=== PATIENT | male | born 1980 | race Caucasian/White ===

== ENCOUNTER 2024-02-27 16:45 | Emergency (ER) | payer OTHER, SELFPAY ==
[2024-02-27] VITALS (11 sets, daily range): BP systolic 137–146; BP diastolic 103–107; PULSE 79–93; RESP 16; TEMP 36.5; O2SAT 96–100; BMI 28.2
--- NOTE | 2024-02-27 17:05 | ED.GENADULT ---
HPI - General Adult General Date Seen: 02/27/24 Chief complaint: Neck Injury/Pain Stated complaint: neck pain Time Seen by Provider: 02/27/24 17:01 History of Present Illness HPI narrative: 43-year-old male presents to the ER today with a 3 day history of neck pain. He is having pain in the right posterior neck, at the base of the skull. He 1st noticed it 3 days ago, on Tuesday when he woke up and says that he thinks he may have slept wrong. The pain has been getting steadily worse since then. Pain increases with turning his neck, and with swallowing. He seemed Marcello sweaty last night but denies any other fever. No nausea or vomiting. He has no recent trauma. No injury. No recent chiropractic manipulation. The pain is mostly in the right posterior neck and radiates down to the right lateral neck but not really into the shoulder and not down the arm. He does not really have an associated headache. Some occasional episodes of dizziness but no vertigo. No blurry vision. No tinnitus. No trouble with his hearing. He does refer call that 14 years ago he had a history of an infected or abscessed lymph noted his neck. It sounds like he initially thought at that occasion that he had ?slept wrong? and then ultimately wound up being admitted for course of IV antibiotics at [facility]. He was sent home to finish antibiotics with a PICC line. He does not recall the details about that infection, whether was a lymph node or an abscess or something deeper. He does not recall the name of the infection or the name of the antibiotic he was treated with. Records are not available to us today. Related Data Home Medications ?Medication ?Instructions ?Recorded ?Confirmed No Known Home Medications 02/27/24 02/27/24 Allergies Allergy/AdvReac Type Severity Reaction Status Date / Time No Known Drug Allergies Allergy Verified 02/27/24 17:42 PFSH PFS Social History Smoking Status: Never smoker How often do you have a drink containing alcohol: 2-3 times a week AUDIT-C Alcohol total score: 3 Non-prescribed substance use: denies use Exam Narrative: Exam Narrative: Constitutional: Appears well-developed and well-nourished. Alert. Conversant. Non toxic. HENT: Head: Atraumatic. Nose: Nose normal. Mouth/Throat: Oral mucosa is clear and moist. no trismus. Pharynx normal. Tonsils symmetric. No tonsillar enlargement, . Perhaps subtle erythema but may just be a normal variant. No exudates. Uvula midline. Phonation normal Eyes: Conjunctivae normal. EOM normal. Pupils equal, round, and reactive to light. No scleral icterus. Neck: Range of motion is limited by posterolateral neck pain. He is able to rotate to the left about 30 or 45?. He has pain with rotation to the right anything beyond midline. He also endorses pain with flexion and extension of the neck but does not have ?stiffness or ?meningismus. ? Evaluation of the posterior neck is normal. Skin is pink but suntanned. No erythema or warmth. I do not appreciate any rash or shingles. There is no palpable mass, lymphadenopathy, or fluctuance. No crepitus of the soft tissue. Right ear: Pinna, mastoid, TM are normal. Canal normal. Left ear: Pinna, mastoid, TM, canal are normal. Cardiovascular: Normal rate, regular rhythm. No gallop. No friction rub. No murmur heard. Symmetric radial artery pulses Pulmonary/Chest: Effort normal. No stridor. No respiratory distress. No wheezes. No rales. No rhonchi . Musculoskeletal: RUE: Normal range of motion. No tenderness. No deformity LUE: Normal range of motion. No tenderness. No deformity RLE: Normal range of motion. No edema. No tenderness. No deformity LLE: Normal range of motion. No edema. No tenderness. No deformity Lymph: No occipital, anterior or posterior cervical, submental, supraclavicular adenopathy. Neurological: Alert and oriented to person, place, and time. Normal strength. CN II-VII intact. No sensory deficit. GCS eye subscore is 4. GCS verbal subscore is 5. GCS motor subscore is 6. Normal coordination Skin: Skin is warm and dry. No rash noted. No pallor. Normal capillary refill. Psychiatric: Normal mood. Normal affect. Const: Vital Signs, click to edit/add: Vital Signs - 24 hr 02/27/24 16:58 02/27/24 17:56 02/27/24 18:00 Temperature 97.7 F Pulse Rate 88 90 Pulse Rate [Pulse Oximeter] 93 Respiratory Rate 16 Blood Pressure Blood Pressure [Ri ght Upper Arm] 137/105 H Pulse Oximetry 100 98 99 Oxygen Delivery Me thod Room Air 02/27/24 18:15 02/27/24 18:30 02/27/24 18:45 Temperature Pulse Rate 90 86 88 Pulse Rate [Pulse Oximeter] Respiratory Rate Blood Pressure Blood Pressure [Ri ght Upper Arm] Pulse Oximetry 98 97 98 Oxygen Delivery Me thod 02/27/24 19:00 02/27/24 20:20 02/27/24 20:21 Temperature Pulse Rate 87 80 84 Pulse Rate [Pulse Oximeter] Respiratory Rate Blood Pressure 138/103 H Blood Pressure [Ri ght Upper Arm] Pulse Oximetry 99 96 98 Oxygen Delivery Me thod 02/27/24 22:08 02/27/24 22:09 Temperature Pulse Rate 79 Pulse Rate [Pulse Oximeter] Respiratory Rate Blood Pressure 146/107 H Blood Pressure [Ri ght Upper Arm] Pulse Oximetry 97 Oxygen Delivery Me thod Course Vital Signs Vital signs: Initial Vital Signs Temperature 97.7 F 02/27/24 16:58 Temperature Source Temporal Artery Scan 02/27/24 16:58 Pulse Rate 93 02/27/24 16:58 Respiratory Rate 16 02/27/24 16:58 Blood Pressure 137/105 H 02/27/24 16:58 Blood Pressure Mean 115 H 02/27/24 16:58 Blood Pressure Position High-Fowlers 02/27/24 16:58 Pulse Oximetry 100 02/27/24 16:58 Oxygen Delivery Method Room Air 02/27/24 16:58 Vital Signs Temperature 97.7 F 02/27/24 16:58 Pulse Rate 93 02/27/24 16:58 Respiratory Rate 16 02/27/24 16:58 Blood Pressure 137/105 H 02/27/24 16:58 Pulse Oximetry 100 02/27/24 16:58 Oxygen Delivery Method Room Air 02/27/24 16:58 Temperature 97.7 F 02/27/24 16:58 Pulse Rate 79 02/27/24 22:08 Respiratory Rate 16 02/27/24 16:58 Blood Pressure 146/107 H 02/27/24 22:09 Pulse Oximetry 97 02/27/24 22:08 Oxygen Delivery Method Room Air 02/27/24 16:58 Medications Administered Medications: Discontinued Medications Generic Name Dose Route Start Last Admin Trade Name Freq PRN Reason Stop Dose Admin Cyclobenzaprine HCl 10 mg 02/27/24 17:28 02/27/24 17:50 Cyclobenzaprine Hcl 10 Mg Tablet PO 02/27/24 17:29 10 mg ONCE ONE Administration Dexamethasone 10 mg 02/27/24 18:53 02/27/24 19:44 Dexamethasone 4 Mg/Ml Vial IV 02/27/24 18:54 10 mg ONCE ONE Administration Piperacillin Sod/Tazobactam 100 mls @ 200 mls/hr 02/27/24 18:53 02/27/24 20:22 Sod 4.5 gm/ Sodium Chloride IVPB 02/27/24 18:54 Infused ONCE ONE Infusion Lactated Ringer's 1,000 mls @ 125 mls/hr 02/27/24 20:55 02/27/24 21:00 Lactated Ringers 1000 Ml IV 125 mls/hr .Q8H BHARAT Administration Ibuprofen 600 mg 02/27/24 17:28 02/27/24 17:51 Ibuprofen 600 Mg Tablet PO 02/27/24 17:29 600 mg ONCE ONE Administration Medical Decision Making [facility] Narrative Medical decision making narrative: This is a very pleasant 43-year-old male presenting to the ER today with a 3 day history of atraumatic neck pain. He is reporting primarily having pain in the right posterior lateral neck from the base of the occiput down word. No radicular pain or numbness or weakness down his arm. No history of trauma or injury or axial load to raise risk for C-spine injury. Interestingly he also reports fairly significant of odynophagia. No recent pharyngitis or cough or fever. No other known injury to his pharynx. Laboratory workup is fairly reassuring with normal white count and minimally abnormal CRP. Procalcitonin is fairly normal. However with significant an aphasia and history of previous deep space neck infection (details limited but apparently was hospitalized at [facility] 14 years ago) we did obtain advanced imaging with CT scan. See CT scan does demonstrate a retropharyngeal fluid collection measuring 9 mm x 75 mm. Discussed with radiology and they confirmed that it is in the midline by in the esophagus. Incidentally when I reviewed the CT images I was questioning some irregularity of the contrast enhancement in the right IJ vein (possibly limb air syndrome) the radiology indicates that this is a normal finding related to contrast just beginning to feel the IJ vein at the time images were taken and does not represent clot in the vein). Patient was started on IV antibiotics (Zosyn) and steroids. Discussed with our ENT surgeon, Dr. Yoo. Off Dr. Yoo would advise transfer to a larger facility given the potential for worsening infection and need for advanced surgical intervention. Discussed with the patient and his . Their primary care is [facility] now. They would be willing to transfer to [facility] In discussion with the line access center we initially discussed the case with Dr. Chavez, who is the ENT on-call for [facility]. He would definitely accept the patient there and would like the patient to come expeditiously. Unfortunately, there are no beds available at [facility] now and there may be an 8 hour bed delay. ENT feels that that amount of bili would not be appropriate. Therefore recommends that we try to get the patient admitted at [place], where beds are immediately available. Subsequently discussed with the on-call ENT surgeon for [facility]. He also agrees to evaluate the patient when he arrives at [facility], but feels that there is less urgency for transfer. Subsequently the patient was accepted by the hospitalist at [facility], Dr. Wynn. Patient was transferred by EMS. He remained hemodynamically stable and with a patent airway throughout his ER course Lab Data Labs: Lab Results 02/27/24 02/27/24 02/27/24 Range/Units 17:35 17:35 19:18 WBC 7.94 (4.50-11.00) K/uL RBC 4.63 (4.30-5.90) m/uL Hgb 14.2 (13.5-17.5) gm/dL Hct 42.2 (37.0-53.0) % MCV 91 (80-100) fL MCH 31 (26-34) pg MCHC 34 (32-36) gm/dL RDW Coeff of Sherice 12.1 (11.5-15.5) % Plt Count 171 (140-440) K/uL Neut % (Auto) 61.3 (42.0-72.0) % Lymph % (Auto) 23.6 (20-44) % [place] % (Auto) 12.2 H (0.0-11.0) % Eos % (Auto) 1.6 (0.0-7.0) % Baso % (Auto) 0.5 (0.0-3.0) % Neut # (Auto) 4.87 (1.7-7.0) K/uL Lymph # (Auto) 1.87 (0.90-2.90) K/uL [place] # (Auto) 1.00 H (0.00-0.90) K/UL Eos # (Auto) 0.13 (0.00-0.50) K/uL Baso # (Auto) 0.04 (0.00-0.30) K/uL Abs Immat Gran (auto) 0.06 (0.00-0.30) K/uL Imm/Tot Granulo (auto) 0.8 % Sodium 137 (135-149) mmol/L Potassium 4.2 (3.6-5.1) mmol/L Chloride 103 (96-114) mmol/L Carbon Dioxide 28 (20-32) mmol/L Anion Gap 6 L (7-15) mEq/L BUN 19 (5-24) mg/dL Creatinine 1.0 (0.5-1.5) mg/dL Estimated Creat Clear 113.03 Estimated GFR 97 ml/min Glucose 97 (60-115) mg/dL Calcium 9.0 (8.4-10.6) mg/dL C-Reactive Protein 2.3 H (0.5-1.0) mg/dL Procalcitonin Cancelled 0.05 Group A Strep DNA NOT DETECTED (Not Detectd) Imaging Data CTA neck: Attestation: I have reviewed the pertinent imaging results. Radiologist's impression: CTA neck: No high-grade stenosis or filling defects are identified in the cervical carotid systems or cervical vertebral arteries. No dissection identified. Numerous prominent cervical chain lymph nodes may be reactive. Thickening of the palatine tonsil tissues may represent tonsillitis. There is a retropharyngeal fluid collection which measures up to 0.9 cm in thickness at the C4 level. The fluid collection spans the C2 through C5 levels, measuring 7.5 cm craniocaudad. Discharge Plan Discharge Clinical Impression: Abscess, retropharyngeal Patient Disposition: [facility] Prescriptions: No Action No Known Home Medications Stand Alone Forms: MyHealth Info Instructions
--- NOTE | 2024-02-27 17:28 | CRLHL7_ITS ---
For Patients: As a result of the Century Cures Act, medical imaging exams and procedure reports are released immediately into your electronic medical record. You may view this report before your referring provider. If you have questions, please contact your health care provider. DATE: 02/27/2024 CLINICAL HISTORY: Patient with neck pain. TECHNIQUE: Standard helical CT image acquisition of the neck up to the skull base after bolus intravenous contrast enhancement. 2D and 3D MIP images for post-processing were performed and interpreted on an independent workstation and 3D images were permanently archived. COMPARISON: CT same day. FINDINGS: There is a retropharyngeal fluid collection measuring up to 0.9 cm in thickness, centered at the C4 level but spanning the C2 through C5 levels, measuring 7.5 cm the in the craniocaudad dimension. The origins of the great vessels from the aortic arch are patent. The origin of the right vertebral artery is patent. The origin of the left vertebral artery is patent. The common carotid arteries are patent. There is no stenosis at the origin of the right internal carotid artery. There is no stenosis at the origin of the left internal carotid artery. The rest of the cervical segments of the internal carotid arteries are patent up to the skull base. The left vertebral artery is dominant. The cervical segments of the vertebral arteries are patent up to the skull base. 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 The visualized lung apices are unremarkable. The thyroid gland is unremarkable There are degenerative changes in the cervical spine. IMPRESSION: 1. Patent cervical vasculature. 2. Retropharyngeal fluid collection measuring up to 0.9 cm in thickness, centered at the C4 level but spanning the C2 through C5 levels, measuring 7.5 cm the in the craniocaudad dimension. This may infectious or inflammatory in etiology and clinical correlation is recommended. Please note that all CT scans at this facility use dose modulation, iterative reconstruction, and/or weight-based dosing when appropriate to reduce radiation dose to as low as reasonably achievable. Dictated by Tara Ferreira MD @ 02/28/2024 10:03:54 AM (Electronically Signed)
[2024-02-27] MEDS: CYCLOBENZAPRINE HCL 10 MG TABLET PO (17:50)
[2024-02-27] MEDS: IBUPROFEN 600 MG TABLET PO (17:51)
[2024-02-27 18:01] LABS: Basophils Absolute Auto 0.04 K/uL (0.00-0.30); Basophils Percent Auto 0.5 % (0.0-3.0); Eosinophils Absolute Auto 0.13 K/uL (0.00-0.50); Eosinophils Percent Auto 1.6 % (0.0-7.0); Hematocrit 42.2 % (37.0-53.0); Hemoglobin* 14.2 gm/dL (13.5-17.5); Immature Granulocytes Abs Auto 0.06 K/uL (0.00-0.30); Immature Granulocytes Pct Auto 0.8 %; Lymphocytes Absolute Auto 1.87 K/uL (0.90-2.90); Lymphocytes Percent Auto 23.6 % (20-44); Mean Corpuscular HGB Conc 34 gm/dL (32-36); Mean Corpuscular Hemoglobin 31 pg (26-34); Mean Corpuscular Volume 91 fL (80-100); Monocytes Percent Auto 12.2 % (0.0-11.0); Neutrophils Absolute Auto 4.87 K/uL (1.7-7.0); Neutrophils Percent Auto 61.3 % (42.0-72.0); Platelet Count* 171 K/uL (140-440); RDW Coefficient of Variation % 12.1 % (11.5-15.5); Red Blood Count 4.63 m/uL (4.30-5.90); White Blood Count* 7.94 K/uL (4.50-11.00)
[2024-02-27 18:03] LABS: Slide Review Reflex No
[2024-02-27 18:05] LABS: Chloride* 103 mmol/L (96-114); Potassium* 4.2 mmol/L (3.6-5.1); Sodium* 137 mmol/L (135-149)
[2024-02-27 18:08] LABS: Est. Creatinine Clearance* 113.03; Estimated Glomerular Filt Rate 97 ml/min
[2024-02-27 18:09] LABS: Anion Gap 6 mEq/L (7-15); Blood Urea Nitrogen* 19 mg/dL (5-24); Carbon Dioxide* 28 mmol/L (20-32); Glucose* 97 mg/dL (60-115)
[2024-02-27 18:11] LABS: C Reactive Protein* 2.3 mg/dL (0.5-1.0)
[2024-02-27 18:26] LABS: Procalcitonin* 0.05 ng/mL (<0.50)
[2024-02-27] MEDS: dexAMETHasone 4 MG/ML VIAL 10 MG IV (19:44)
[2024-02-27] MEDS: PIPERACILLIN/TAZOBACTAM 4.5 GM in 0.9 % SODIUM CHLORIDE Mini-bag 100 ML IVPB (19:45)
[2024-02-27 19:52] LABS: Strep A DNA Probe* NOT DETECTED (Not Detectd)
[2024-02-27] MEDS: LACTATED RINGERS 1000 ML 1,000 ML 125 ML IV (21:00)
== END 2024-02-27 22:30 | disposition short-term general hospital (02) ==
PROVIDERS: Emergency Provider Emergency Medicine; PCP Student in an Organized Health Care Education/Training Program
DX: K68.19 Other retroperitoneal abscess (principal)
CPT/HCPCS: 36415; 70498; 80048; 84145; 85025; 86140; 87040; 87651; 96365; 96375; 99284; 99285; A9270; J1100; J2543; J7120; Q9967

== ENCOUNTER 2024-02-27 22:31 | Outpatient (CLI) | payer OTHER, SELFPAY | END 2024-02-27 22:32 | disposition home or self-care (01) | LOC: AMB 03-02 13:38 | PROVIDERS: PCP Student in an Organized Health Care Education/Training Program; Visit Provider Family Medicine | DX: J39.0 Retropharyngeal and parapharyngeal abscess (principal) | CPT/HCPCS: A0425; A0428 ==